=== PATIENT | female | born 1995 | race Caucasian/White ===

== ENCOUNTER 2020-02-10 12:01 | Emergency (ER) | payer MEDICAID, SELFPAY ==
[~2020-02-10] VITALS: Ht 152.4 cm; Wt 82.1 kg
[2020-02-10 12:19] VITALS: Ht 152.4 cm; Wt 82.1 kg
[2020-02-10 14:17] LABS: BASOPHIL % 0.4 % (0-2); PLATELET COUNT 192 x10^3mcL (130-400); RED CELL DISTRIBUTION WIDTH 14.4 % (11.5-14.5)
[2020-02-10 14:27] LABS: CALCIUM 8.6 mg/dL (8.5-10.1); CARBON DIOXIDE 25.1 mmol/L (21-32); CHLORIDE SERUM 104 mmol/L (98-107); CREATININE SERUM 0.9 mg/dL (0.6-1.0); GFR1 > 60 mL/min; GLUCOSE SERUM 90 mg/dL (74-106); POTASSIUM SERUM 3.7 mmol/L (3.5-5.1); SODIUM SERUM 139 mmol/L (136-145)
[2020-02-10 14:33] LABS: UA SPECIFIC GRAVITY 1.025 (1.005-1.035); microscopic required? YES; urine erythrocyte 2+ (NEGATIVE)
[2020-02-10 14:34] LABS: ALBUMIN 3.8 g/dL (3.4-5.0); ALKALINE PHOSPHATASE 108 U/L (46-116); ALT/SGPT 84 U/L (14-59); AST/SGOT 54 U/L (15-37); BILIRUBIN TOTAL 0.34 mg/dL (0.20-1.00); C REACTIVE PROTEIN 1.3 mg/dL (<=0.9); LACTIC DEHYDROGENASE (LDH) 295 U/L (100-190); TOTAL PROTEIN, SERUM 8.2 g/dL (6.4-8.2)
[2020-02-10 16:25] VITALS: BP 110/72
== END 2020-02-10 16:25 | disposition home or self-care (01) ==
LOC: ED 12:01
PROVIDERS: Emergency Medicine
DX: J18.9 Pneumonia, unspecified organism (principal); Z20.828 Contact with and (suspected) exposure to other viral communicable diseases
CPT/HCPCS: 36415; 36600; 83880; 85378; 87804; Q0092; U0003-CS